=== PATIENT | male | born 1970 | race Caucasian/White ===

== ENCOUNTER 2017-11-09 11:36 | Outpatient (CLI) | payer OTHER | END 2017-11-09 11:37 | disposition critical access hospital (66) | LOC: EMS 11:36 | PROVIDERS: ATTEND Surgery | DX: M25.511 Pain in right shoulder (principal) | CPT/HCPCS: A0425; A0427 ==

== ENCOUNTER 2017-11-09 12:11 | Emergency (ER) | payer OTHER ==
[2017-11-09 12:19] VITALS: BP 157/98
--- NOTE | 2017-11-09 12:20 | ED Physician Documentation ---
PD HPI UPPER EXT INJURY - Stated complaint Stated Complaint: R SHOULDER PX - Chief complaint Chief Complaint: Ext Problem - History obtained from History obtained from: Patient - History of Present Illness Location: Right, Shoulder Type of injury: Twist (he just reached up behind hmself and his shoulder popped out. This has happened before and he has been able to roll his shoulder and pop it back in. Could not maneuver it this time.). No: Fall Where injury occurred: Home Timing - onset: Today (just shortly [employer]) Timing - details: Abrupt onset, Still present Improved by: Immobilization Worsened by: Moving Associated symptoms: No: Weakness, Numbness Similar symptoms before: Diagnosis (recurrent shoulder dislocation) Recently seen: Not recently seen Review of Systems Constitutional: denies: Fever, Chills Nose: denies: Rhinorrhea / runny nose, Congestion Throat: denies: Sore throat Respiratory: denies: Cough Neurologic: denies: Focal weakness, Numbness PD PAST MEDICAL HISTORY - Past Medical History Cardiovascular: None Respiratory: None Neuro: None Musculoskeletal: Other (recurrent shoulder dislocations) - Present Medications Home Medications: Ambulatory Orders Medication Instructions Recorded Confirmed No Known Home Medications [No 11/09/17 11/09/17 Known Home Medications] - Allergies Allergies/Adverse Reactions: Allergies Allergy/AdvReac Type Severity Reaction Status Date / Time No Known Drug Allergies Allergy Verified 11/09/17 12:19 PD ED PE NORMAL - Vitals Vital signs reviewed: Yes - General General: Alert and oriented X 3, Well developed/nourished, Other (arm held out to 90 degrees and supported by friend; pain with slight movement. ) - HEENT HEENT: Atraumatic - Cardiac Cardiac: RRR, No murmur - Respiratory Respiratory: Clear bilaterally - Derm Derm: Normal color, Warm and dry - Extremities Extremities: Other (right shoulder with palpable anterior dislocation. Pain with slight shoulder movement. SOme spasms of shoulder muscles. ) - Neuro Neuro: No motor deficit, No sensory deficit Results - Vitals Vitals: Vital Signs - 24 hr 11/09/17 12:14 Temperature 36.6 C Heart Rate 71 Respiratory 16 Rate Blood Pressure 157/98 H O2 Saturation 100 Oxygen O2 Source Room air Procedures - Reduction Body part reduced: Right, Shoulder Fracture or dislocation: Dislocation Shoulder reduction technique: [place] / ext rotation Reduction aftercare: NV intact, Alignment improved, Patient tolerated well PD MEDICAL DECISION MAKING - Sepsis Event Vital Signs: Vital Signs - 24 hr 11/09/17 12:14 Temperature 36.6 C Heart Rate 71 Respiratory 16 Rate Blood Pressure 157/98 H O2 Saturation 100 Oxygen O2 Source Room air Departure - Departure Disposition: 01 Home, Self Care Clinical Impression: Recurrent shoulder dislocation Qualifiers: Laterality: right Qualified Code(s): M24.411 - Recurrent dislocation, right shoulder Condition: Stable Record reviewed to determine appropriate education?: Yes Instructions: ED Dislocation Shoulder Redu Comments: Sling the shoulder for couple days until feeling better. Progress activity as able. Tylenol or ibuprofen if needed for pains. Discharge Date/Time: 11/09/17 13:18
[2017-11-09] MEDS ORDERED: KETOROLAC 60 MG/2 ML VIAL IVP STA (12:27)
[2017-11-09] MEDS ORDERED: MORPHINE 2 MG/ML CARPUJECT IVP STA (12:27)
[2017-11-09] MEDS ORDERED: MORPHINE 10 MG/ML VIAL IVP STA (12:28)
== END 2017-11-09 13:18 | disposition home or self-care (01) ==
LOC: ED 12:11
DX: M24.411 Recurrent dislocation, right shoulder (principal)
CPT/HCPCS: 96374; 96375; 99282; 99283